=== PATIENT | female | born 1950 | race Hispanic/Latino ===

== ENCOUNTER 2018-01-05 08:13 | Day surgery (SDC) | payer MEDICARE ==
[~2018-01-05 08:13] MED LIST: ANTIBIOTIC OINT TP ONE; BACITRACIN ONE; MARCAINE 0.5% 0 ML INFILTRATI ONE; XYLOCAINE 1%/ EPI 1:100,000 INFILTRATI ONE
[2018-01-05] MEDS ORDERED: DIPRIVAN 10 MG/ML IV ONE (08:53)
[2018-01-05] MEDS ORDERED: DILAUDID ONE (09:08)
[2018-01-05] MEDS ORDERED: XYLOCAINE MPF 2% ONE (09:08)
--- NOTE | 2018-01-05 09:16 | Short Stay Summary ---
Short Stay Documentation Date of service: 01/05/18 Narrative H&P: 67-year-old female with chronic bilateral knee pain. Previous imaging demonstrates osteoarthrosis of the knees. Patient has undergone extensive conservative management with intra-articular injections of steroid and hyaluronate. She has had short-term improvement. Previous genicular nerve blocks performed under fluoroscopic guidance yielded 100% pain relief. She now presents for radiofrequency genicular nerve ablation of the right knee. - History H&P: obtained from office Past Surgical History: bowel surgery Social history: , lives with family - Allergies and Medications Current Medications: Allergies Sulfa (Sulfonamide Antibiotics) Allergy (Verified 01/03/18 09:30) Swelling Home Medications Medication Instructions Recorded Confirmed Last Taken Type ALPRAZolam [Xanax] 1 mg PO PRN PRN 01/03/18 01/03/18 Unknown History Acetaminophen [Tylenol Extra 1,000 mg PO PRN PRN 01/03/18 01/03/18 Unknown History Strength] Aspirin [Lo-Dose Aspirin EC] 81 mg PO DAILY 01/03/18 01/03/18 Unknown History Cranberry Fruit [Cranberry] 400 mg PO BID 01/03/18 01/03/18 Unknown History Docusate Sodium [Colace Clear] 50 mg PO DAILY 01/03/18 01/03/18 Unknown History Escitalopram [Lexapro] 20 mg PO DAILY 01/03/18 01/03/18 Unknown History Gabapentin [Neurontin] 400 mg PO DAILY 01/03/18 01/03/18 Unknown History HYDROcodone/APAP 5-325 [[place] 1 each PO Q6HR PRN 01/03/18 01/03/18 Unknown History 5/325] Lactobacillus Acidophilus 0.5 mg PO DAILY 01/03/18 01/03/18 Unknown History [Acidophilus Probiotic] Levothyroxine [Synthroid] 125 mcg PO QAM 01/03/18 01/03/18 Unknown History Lisinopril 40 mg PO DAILY 01/03/18 01/03/18 Unknown History Meloxicam 15 mg PO DAILY 01/03/18 01/03/18 Unknown History Metoprolol [Lopressor] 25 mg PO DAILY 01/03/18 01/03/18 Unknown History Multivit-Min/FA/Lycopen/Lutein 1 each PO DAILY 01/03/18 01/03/18 Unknown History [Centrum Silver Tablet] buPROPion SR [Wellbutrin Sr] 150 mg PO QAM 01/03/18 01/03/18 Unknown History hydrALAZINE [Apresoline] 25 mg PO TID 01/03/18 01/03/18 Unknown History - Physical exam General appearance: no acute distress Integumentary: no rash HEENT: Atraumatic, PERRLA, EOMI Lungs: Clear to auscultation Breasts: deferred Heart: Regular rate, No murmurs Gastrointestinal: normal Female Genitourinary: deferred Rectal Exam: deferred Extremities: no ischemia, abnormal (tenderness palpation right knee with small joint effusion.) Neurological: Normal gait, Normal speech, Strength at 5/5 X4 ext, Sensation intact - Brief post op/procedure progress note Date of procedure: 01/05/18 Pre-op diagnosis: osteoarthritis of the right knee. Post-op diagnosis: same Anesthesia: MAC Surgeon: LOUIE REED Estimated blood loss: none Pathology: none Condition: stable - Disposition Condition at discharge: Good Disposition: DC-01 TO HOME OR SELFCARE Short Stay Discharge Plan Follow up with: KIM RODRIGUEZ [Other] - 7 Days
--- NOTE | 2018-01-05 09:22 | Operative Report ---
Operative Report Operative Report: PREOPERATIVE DIAGNOSIS: 1. Chronic right knee pain. 2. Osteoarthrosis of the right knee. POSTOPERATIVE DIAGNOSIS: 1. Same. PROCEDURE: 1. Radiofrequency ablation of superior medial genicular nerve. 2. Radiofrequency ablation superior lateral genicular nerve. 3. Radiofrequency ablation inferior medial genicular nerve. SURGEON: Elio Stacy M.D. ANESTHESIA: Monitored anesthesia care, 1% lidocaine local INDICATION: 67-year-old female with chronic right knee pain. Previous imaging reveals osteoarthrosis of the right knee. Patient has completed extensive conservative therapy is including bracing. Bladder percent pain relief reported after genicular nerve blocks of right knee. The patient now presents for radiofrequency genicular nerve ablation. PROCEDURE: Following informed consent, the patient was brought to the operative suite and placed on the table in supine position. The right knee was sterilely prepped and draped in routine fashion. Monitored anesthesia care was delivered without complication. The skin overlying the location of superior medial, superior lateral and inferior medial genicular nerves was infiltrated with 1% lidocaine. 7 cm radiofrequency probes were advanced to the expected locations of the nerves. Motor testing was performed at 2 Hz and no motor stimulation was identified. Following injection of 1.5 mL of 2% lidocaine at each location , [employer] radiofrequency ablation was performed at 70C for 2 minutes 30 seconds each location. Following completion of the ablation, the probes were removed. Dressings were applied. Patient was then moved onto the [facility] and taken to the recovery room where she is noted be in stable cardiopulmonary neurologic condition. DISPOSITION: Patient was discharged to home in good condition. FOLLOW-UP: Return to clinic in 2 weeks.
--- NOTE | 2018-01-05 09:27 | Anesthesia Day of Surgery ---
Anesthesia Day of Surgery - Day of Surgery Patient Examined: Yes Patient H&P Reviewed: Yes Patient is NPO: Yes
[2018-01-05] MEDS ORDERED: ZOFRAN IV PRN (09:29)
[2018-01-05] MEDS ORDERED: TORADOL IV PRN (09:29)
--- NOTE | 2018-01-05 09:29 | Anesthesia Consultation ---
Anesthesia Consult and Med Hx Date of service: 01/05/18 - Airway Anesthetic Teeth Evaluation: Dentures (upper and lower. Wearing only upper today ) ROM Head & Neck: Adequate Mental/Hyoid Distance: Adequate Mallampati Class: Class II Intubation Access Assessment: Probably Good - Pulmonary Exam CTA: Yes - Cardiac Exam Cardiac Exam: RRR - Pre-Operative Health Status ASA Pre-Surgery Classification: ASA3 Proposed Anesthetic Plan: MAC - Pulmonary Hx Smoking: No Hx Sleep Apnea: Yes (DX SLEEP APNEA , NO CPAP USE.) - Cardiovascular System Hx Hypertension: Yes (X 20 YRS) - Central Nervous System Hx Psychiatric Problems: Yes (Anxiety and depression) - Endocrine Hx Hypothyroidism: Yes (ON DAILY MEDS) - Other Systems Hx Cancer: Yes (MELANOMA LT LEG,BACK,RT ARM REMOVED) - Additional Comments Anesthesia Medical History Comments: Chronic pain
[2018-01-05] MEDS ORDERED: VERSED IV NR (10:00)
[2018-01-05] MEDS ORDERED: NACL 0.9% 1000 ML 1,000 ML IV SCH (10:00)
[2018-01-05] MEDS ORDERED: VERSED ONE (10:28)
[2018-01-05] MEDS ORDERED: XYLOCAINE 2%/ EPI 1:200,000 INFILTRATI ONE (10:37)
[2018-01-05] MEDS ORDERED: WATER FOR IRRIG STERILE IR ONE (10:48)
[2018-01-05] MEDS ORDERED: XYLOCAINE 2%/EPI 1:100,000 INFILTRATI ONE (10:49)
--- NOTE | 2018-01-05 11:40 | XRay Report ---
RIGHT KNEE, 2 VIEWS History: Osteoarthritis, right knee ablation. Findings: Frontal and lateral fluoroscopic images of the right knee were obtained in the operating room. No evidence for fracture or bone lesion. Mild medial compartment joint space narrowing is noted. Radioablation needles have been placed. Please correlate with the procedural report as needed. Impression: Mild osteoarthritic changes.
[2018-01-05 12:51] VITALS: BP 156/73
--- NOTE | 2018-01-05 14:50 | Post Anesthesia Evaluation ---
- Post Anesthesia Evaluation Patient Participated: Yes Airway Patent: Yes Stable Respiratory Function: Yes Nausea/Vomiting: No Temp > 96.8F: Yes Pain Manageable: Yes Adequeate Hydration: Yes Anesthesia Complications: No
== END 2018-01-05 12:10 | disposition home or self-care (01) ==
LOC: OR 08:13
PROVIDERS: ATTEND Radiology Diagnostic Radiology
DX: M17.11 Unilateral primary osteoarthritis, right knee (principal); G89.29 Other chronic pain; I10 Essential (primary) hypertension; E03.9 Hypothyroidism, unspecified; F41.9 Anxiety disorder, unspecified; F32.9 Major depressive disorder, single episode, unspecified; G47.33 Obstructive sleep apnea (adult) (pediatric); Z98.890 Other specified postprocedural states; Z88.2 Allergy status to sulfonamides; Z79.899 Other long term (current) drug therapy; Z85.820 Personal history of malignant melanoma of skin
CPT/HCPCS: 64640; 73560; J1170; J2250; J2704; J7030